=== PATIENT | male | born 1955 | race Caucasian/White ===

== ENCOUNTER → 2017-08-26 | Outpatient (CLI) | payer BC ==
--- NOTE | 2017-08-26 15:14 | RADRPT ---
PROCEDURE: Right knee radiographs. CLINICAL INDICATION: Right knee pain. TECHNIQUE: Three views. Weight bearing. Frontal, lateral, and patellar view. COMPARISON: No prior studies are available for comparison. FINDINGS: There is no fracture or dislocation. There is a small knee joint effusion. There are degenerative changes with osteophytes arising from the joint margins. There is no lytic or blastic lesion. There is no radiopaque foreign body. IMPRESSION: 1. Small joint effusion. 2. Mild degenerative change. 3. Otherwise normal images of the right knee. RPTAT: QQ .Gareth Gonzales MD, Date Time Electronically viewed and signed by .Gareth Gonzales MD, on 08/26/2017 15:14 .R/
--- NOTE | 2017-08-26 16:46 | HKNOTE ---
DATE OF SERVICE: 08/26/2017 MAIN COMPLAINT: Pain and swelling in the right knee. HISTORY OF MAIN COMPLAINT: The patient is a 61-year-old male who underwent an arthroscopic operatio n on his right knee for a torn meniscus (07/27/2015). After the surgery, his knee returned to "norm al." He had no further problem with his knee until about a month ago when he was playing soccer. T owards the end of the game, his knee suddenly became swollen and painful. There was no specific inj ury during the game. He was able to play for the remaining 5 minutes. The next day the knee became even more swollen and painful. He works for [employer]. He was not able to return to work because "they won't take me back with a painful knee." PRESENT COMPLAINTS: The right knee swells. Pain over the medial side. No instability. The knee l ocks quite frequently. He is limping. He is not using a walking aid. He is taking "egen-eyy-nxypyrj painkillers," which s eem to help. He can clip his toenails and tie his shoelaces. He does not have a shoe lift. SPORTING ACTIVITIES: Soccer (started up again recently). PAST ORTHOPEDIC HISTORY: PREVIOUS ORTHOPEDIC OPERATIONS: Arthroscopic surgery as noted above. PRIOR CORTISONE INTAKE: By injection 2 years ago, into his knee. ALCOHOL INTAKE: None. OTHER JOINT PROBLEMS: None. BLOOD TESTS FOR ARTHRITIS: None. PRIOR INJURIES TO HIPS OR KNEES: Right knee as noted above. 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 PAST MEDICAL HISTORY: Entirely negative. PAST SURGICAL HISTORY: Right knee arthroscopic surgery as noted above. DRUG ALLERGIES: NONE. MEDICATIONS: Ymsg-ygm-ylkmjzr pain medications. FAMILY HISTORY: Noncontributory. SYSTEMS REVIEW: Entirely negative. HABITS: Patient does not smoke or drink alcoholic beverages. MEDICAL OFFICE COORDINATOR: Dr. Jordan Alonzo. PHYSICAL EXAMINATION GENERAL: An extremely fit-looking and youthful 61-year-old male. He walks without a walking aid. He has a mild limp. VITAL SIGNS: Height 5 feet 9 inches, weight 168 pounds, blood pressure 120/75, temperature 98.1. RIGHT KNEE: The right knee shows normal alignment. Extension lacks 3 or 4 degrees and is markedly p ainful on forced extension. Flexion lacks 25 degrees. (Pain on attempting further flexion). The med ial and lateral collateral ligaments and cruciate ligaments are intact. Mark test is negative. Th ere is no effusion, tenderness, scarring, crepitus, or cysts. The patella tracks normally. There is no tenderness on the articular surface of the patella or in the patellar groove. The Q angle is norm al. There is 3+ effusion. Tender over the medial joint line. IMAGING: Plain x-rays of the right knee obtained today show approximately 50% narrowing of both med ial and lateral compartments of the knee. Small osteophytes are noted. No other secondary arthriti c changes. DIAGNOSES: 1. Status post previous arthroscopic surgery for torn meniscus of the right knee. 2. Probable retear of medial meniscus of the right knee. MANAGEMENT: 1. The patient is being referred for an MRI scan of the right knee with gadolinium. 2. Physical therapy will be started meanwhile. He will be seen again after the MRI has been reviewed. He will almost certainly need to have anothe r arthroscopic operation on the knee. Patient was given paperwork for his absence from work until he recovers from his right knee. Dictated By: BRIAN PAN/DAO Conf#: [id number] DID#: [id number] CC: JORDAN ALONZO MD;*EndCC*
--- NOTE | 2017-08-26 16:46 | HKNOTE ---
DATE OF SERVICE: 08/26/2017 MAIN COMPLAINT: Pain and swelling in the right knee. HISTORY OF MAIN COMPLAINT: The patient is a 61-year-old male who underwent an arthroscopic operatio n on his right knee for a torn meniscus (07/27/2015). After the surgery, his knee returned to "norm al." He had no further problem with his knee until about a month ago when he was playing soccer. T owards the end of the game, his knee suddenly became swollen and painful. There was no specific inj ury during the game. He was able to play for the remaining 5 minutes. The next day the knee became even more swollen and painful. He works for [employer]. He was not able to return to work because "they won't take me back with a painful knee." PRESENT COMPLAINTS: The right knee swells. Pain over the medial side. No instability. The knee l ocks quite frequently. He is limping. He is not using a walking aid. He is taking "yvsv-etu-ylbgoao painkillers," which s eem to help. He can clip his toenails and tie his shoelaces. He does not have a shoe lift. SPORTING ACTIVITIES: Soccer (started up again recently). PAST ORTHOPEDIC HISTORY: PREVIOUS ORTHOPEDIC OPERATIONS: Arthroscopic surgery as noted above. PRIOR CORTISONE INTAKE: By injection 2 years ago, into his knee. ALCOHOL INTAKE: None. OTHER JOINT PROBLEMS: None. BLOOD TESTS FOR ARTHRITIS: None. PRIOR INJURIES TO HIPS OR KNEES: Right knee as noted above. 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 PAST MEDICAL HISTORY: Entirely negative. PAST SURGICAL HISTORY: Right knee arthroscopic surgery as noted above. DRUG ALLERGIES: NONE. MEDICATIONS: Bsrw-nxn-iqynkkt pain medications. FAMILY HISTORY: Noncontributory. SYSTEMS REVIEW: Entirely negative. HABITS: Patient does not smoke or drink alcoholic beverages. PATTERN ASSEMBLER: Dr. Jordan Alonzo. PHYSICAL EXAMINATION GENERAL: An extremely fit-looking and youthful 61-year-old male. He walks without a walking aid. He has a mild limp. VITAL SIGNS: Height 5 feet 9 inches, weight 168 pounds, blood pressure 120/75, temperature 98.1. RIGHT KNEE: The right knee shows normal alignment. Extension lacks 3 or 4 degrees and is markedly p ainful on forced extension. Flexion lacks 25 degrees. (Pain on attempting further flexion). The med ial and lateral collateral ligaments and cruciate ligaments are intact. Mark test is negative. Th ere is no effusion, tenderness, scarring, crepitus, or cysts. The patella tracks normally. There is no tenderness on the articular surface of the patella or in the patellar groove. The Q angle is norm al. There is 3+ effusion. Tender over the medial joint line. IMAGING: Plain x-rays of the right knee obtained today show approximately 50% narrowing of both med ial and lateral compartments of the knee. Small osteophytes are noted. No other secondary arthriti c changes. DIAGNOSES: 1. Status post previous arthroscopic surgery for torn meniscus of the right knee. 2. Probable retear of medial meniscus of the right knee. MANAGEMENT: 1. The patient is being referred for an MRI scan of the right knee with gadolinium. 2. Physical therapy will be started meanwhile. He will be seen again after the MRI has been reviewed. He will almost certainly need to have anothe r arthroscopic operation on the knee. Patient was given paperwork for his absence from work until he recovers from his right knee. Dictated By: BRIAN PAN/DAO Conf#: [id number] DID#: [id number] CC: JORDAN ALONZO MD;*EndCC*
--- NOTE | 2017-08-26 16:46 | HKNOTE ---
DATE OF SERVICE: 08/26/2017 MAIN COMPLAINT: Pain and swelling in the right knee. HISTORY OF MAIN COMPLAINT: The patient is a 61-year-old male who underwent an arthroscopic operatio n on his right knee for a torn meniscus (07/27/2015). After the surgery, his knee returned to "norm al." He had no further problem with his knee until about a month ago when he was playing soccer. T owards the end of the game, his knee suddenly became swollen and painful. There was no specific inj ury during the game. He was able to play for the remaining 5 minutes. The next day the knee became even more swollen and painful. He works for [employer]. He was not able to return to work because "they won't take me back with a painful knee." PRESENT COMPLAINTS: The right knee swells. Pain over the medial side. No instability. The knee l ocks quite frequently. He is limping. He is not using a walking aid. He is taking "matj-vld-kquqote painkillers," which s eem to help. He can clip his toenails and tie his shoelaces. He does not have a shoe lift. SPORTING ACTIVITIES: Soccer (started up again recently). PAST ORTHOPEDIC HISTORY: PREVIOUS ORTHOPEDIC OPERATIONS: Arthroscopic surgery as noted above. PRIOR CORTISONE INTAKE: By injection 2 years ago, into his knee. ALCOHOL INTAKE: None. OTHER JOINT PROBLEMS: None. BLOOD TESTS FOR ARTHRITIS: None. PRIOR INJURIES TO HIPS OR KNEES: Right knee as noted above. 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 PAST MEDICAL HISTORY: Entirely negative. PAST SURGICAL HISTORY: Right knee arthroscopic surgery as noted above. DRUG ALLERGIES: NONE. MEDICATIONS: Mmho-usa-agclrzr pain medications. FAMILY HISTORY: Noncontributory. SYSTEMS REVIEW: Entirely negative. HABITS: Patient does not smoke or drink alcoholic beverages. BUILDINGS AND GROUNDS COORDINATOR: Dr. Jordan Alonzo. PHYSICAL EXAMINATION GENERAL: An extremely fit-looking and youthful 61-year-old male. He walks without a walking aid. He has a mild limp. VITAL SIGNS: Height 5 feet 9 inches, weight 168 pounds, blood pressure 120/75, temperature 98.1. RIGHT KNEE: The right knee shows normal alignment. Extension lacks 3 or 4 degrees and is markedly p ainful on forced extension. Flexion lacks 25 degrees. (Pain on attempting further flexion). The med ial and lateral collateral ligaments and cruciate ligaments are intact. Mark test is negative. Th ere is no effusion, tenderness, scarring, crepitus, or cysts. The patella tracks normally. There is no tenderness on the articular surface of the patella or in the patellar groove. The Q angle is norm al. There is 3+ effusion. Tender over the medial joint line. IMAGING: Plain x-rays of the right knee obtained today show approximately 50% narrowing of both med ial and lateral compartments of the knee. Small osteophytes are noted. No other secondary arthriti c changes. DIAGNOSES: 1. Status post previous arthroscopic surgery for torn meniscus of the right knee. 2. Probable retear of medial meniscus of the right knee. MANAGEMENT: 1. The patient is being referred for an MRI scan of the right knee with gadolinium. 2. Physical therapy will be started meanwhile. He will be seen again after the MRI has been reviewed. He will almost certainly need to have anothe r arthroscopic operation on the knee. Patient was given paperwork for his absence from work until he recovers from his right knee. Dictated By: BRIAN PAN/DAO Conf#: [id number] DID#: [id number] CC: JORDAN ALONZO MD;*EndCC*
== END | disposition home or self-care (01) ==
LOC: HKI 11:09
DX: Z09 Encounter for follow-up examination after completed treatment for conditions other than malignant neoplasm (principal); M23.206 Derangement of unspecified meniscus due to old tear or injury, right knee
CPT/HCPCS: 73562; G0463